=== PATIENT | male | born 1950 | race Caucasian/White ===

== ENCOUNTER → 2021-09-19 11:53 | Outpatient (BNVA) | payer MEDICARE, OTHER, SELFPAY | PROVIDERS: PCP Nurse Practitioner Family; Visit Provider Nurse Practitioner Family | DX: L03.90 Cellulitis, unspecified (principal); B35.1 Tinea unguium; I10 Essential (primary) hypertension | CPT/HCPCS: 80053 ==

== ENCOUNTER → 2021-09-30 00:01 | Outpatient (BNVA) | payer MEDICARE, OTHER, SELFPAY | PROVIDERS: PCP Nurse Practitioner Family; Visit Provider Nurse Practitioner Family | DX: R73.09 Other abnormal glucose (principal); L03.90 Cellulitis, unspecified | CPT/HCPCS: 83036 ==

== ENCOUNTER → 2021-10-27 08:56 | Outpatient (BNVA) | payer MEDICARE, OTHER, SELFPAY | PROVIDERS: PCP Nurse Practitioner Family; Referring Provider Nurse Practitioner Family; Visit Provider Podiatrist Foot & Ankle Surgery | DX: L60.8 Other nail disorders (principal); E11.21 Type 2 diabetes mellitus with diabetic nephropathy; L60.3 Nail dystrophy; M20.41 Other hammer toe(s) (acquired), right foot; M20.42 Other hammer toe(s) (acquired), left foot; M21.41 Flat foot [pes planus] (acquired), right foot; M21.42 Flat foot [pes planus] (acquired), left foot | CPT/HCPCS: 11721; 99203; 99204 ==

== ENCOUNTER → 2022-08-28 11:20 | Outpatient (BNVA) | payer MEDICARE, OTHER, SELFPAY | PROVIDERS: PCP Nurse Practitioner Family; Visit Provider Nurse Practitioner Family | DX: I10 Essential (primary) hypertension (principal); R73.09 Other abnormal glucose; E11.9 Type 2 diabetes mellitus without complications; B35.1 Tinea unguium | CPT/HCPCS: 80053; 80061; 82962; 83036; 85025 ==

== ENCOUNTER 2024-01-04 11:39 | Outpatient (CLI) | payer MEDICARE, OTHER, SELFPAY ==
--- NOTE | 2024-01-04 11:47 | ECG_ITS ---
[facility] Date: 2024-[facility]-04 Pat Name: FARRAH DOLL Department: Room: Gender: Male Manager Unix: : 1950 Requested By: Erlin Abraham Order Number: [id number] Lauryn MD: Lindsay Hernández M.D. Interpretive Statements Lung unchanged pre/post procedure; Intraprocedure shortess of breath; Symptoms resoled by discharge PROCEDURE: At the baseline, the patient's blood pressure was 180/96 with a heart rate of 106. The baseline electrocardiogram showed normal sinus rhythm with normal ST-Ts. Diffuse nonspecific T wave changes. Poor R wave progression.. The patient exercised for 2 minutes on a standard Adrian protocol. Patient attained a maximum heart rate of 150 beats per minute(101% of the maximum predicted heart rate) with a blood pressure at the peak exercise of 202/120 mm Hg. The EKG at the peak exercise revealed nonspecific T wave changes. Patient did not have any chest pain or any significant cardiac arrhythmias with the exercise During the recovery phase, there were no new changes. Blood pressure at the end of the recovery phase was 176/86 mm Hg with a heart rate of 105 per minute. CONCLUSION: 1. Normal EKG response to treadmill exercise 2. No exercise-induced chest pain or cardiac arrhythmia 3. Severely impaired exercise tolerance, attained a maximum of 4.6 METs Electronically Signed On 01-09-2024 22:39:57 CDT by Lindsay Hernández M.D. [email or web address]
[2024-01-04 12:30] VITALS: BP 177/80; PULSE 102
== END 2024-01-04 11:40 | disposition home or self-care (01) ==
PROVIDERS: PCP Nurse Practitioner Family; Visit Provider Nurse Practitioner Family
DX: R06.02 Shortness of breath (principal); E11.9 Type 2 diabetes mellitus without complications
CPT/HCPCS: 93017

== ENCOUNTER → 2024-01-31 10:35 | Outpatient (BNVA) | payer OTHER, MEDICARE, SELFPAY | PROVIDERS: PCP Nurse Practitioner Family; Visit Provider Nurse Practitioner Family | DX: I10 Essential (primary) hypertension (principal); R06.02 Shortness of breath; J98.11 Atelectasis; J90 Pleural effusion, not elsewhere classified | CPT/HCPCS: 71046 ==

== ENCOUNTER → 2024-05-11 14:06 | Outpatient (BNVA) | payer MEDICARE, OTHER, SELFPAY | PROVIDERS: PCP Nurse Practitioner Family; Visit Provider Internal Medicine | DX: I11.0 Hypertensive heart disease with heart failure (principal); I50.9 Heart failure, unspecified; E11.9 Type 2 diabetes mellitus without complications | CPT/HCPCS: 99204 ==

== ENCOUNTER → 2024-05-11 14:46 | Outpatient (BNVA) | payer OTHER, SELFPAY | PROVIDERS: PCP Nurse Practitioner Family; Visit Provider Internal Medicine | DX: R07.9 Chest pain, unspecified (principal); I50.9 Heart failure, unspecified; I10 Essential (primary) hypertension; R06.02 Shortness of breath; E11.9 Type 2 diabetes mellitus without complications | CPT/HCPCS: 93005 ==

== ENCOUNTER 2024-05-22 09:06 | Outpatient (CLI) | payer MEDICARE, OTHER, SELFPAY ==
[2024-05-22 09:34] LABS: Basophils # 0.1 10^3/uL (0.0-0.1); Basophils % 0.8 %; Eosinophils # 0.5 10^3/uL (0.0-0.8); Eosinophils % 6.3 %; Hematocrit 45.7 % (37-53); Lymphocytes # 1.8 10^3/uL (0.8-4.8); Lymphocytes % 23.9 %; Mean Corpuscular HGB Conc 31.9 g/dL (30-55); Mean Corpuscular Hemoglobin 27.6 pg (27-33); Mean Corpuscular Volume 86.4 fl (82-101); Mean Platelet Volume 9.5 fL (7.4-10.4); Monocytes # 0.7 10^3/uL (0.2-0.9); Monocytes % 9.6 %; Nucleated Red Blood Cells % 0 %; Platelet Count 221 10^3/cmm (157-399); Red Blood Count 5.29 10^6/uL (3.85-5.65); Red Cell Distribution Width 15.6 % (12.1-15.1); White Blood Count 7.62 10^3/uL (3.29-11.43)
[2024-05-22 09:50] LABS: INR 1.01 (0.83-1.21)
[2024-05-22 09:53] LABS: Anion Gap 14.4 (5-19); Blood Urea Nitrogen 12 mg/dL (8-23); Calcium 9.2 mg/dL (8.5-10.5); Carbon Dioxide 28 mmol/L (22-29); Chloride 100 mmol/L (98-107); Glucose 184 mg/dL (65-115); Osmolality Calculated 291 mOsm/kg (285-295); Potassium 4.4 mmol/L (3.5-5.1); Sodium 138 mmol/L (136-145)
== END 2024-05-22 09:07 | disposition home or self-care (01) ==
LOC: LAB 09:09
PROVIDERS: PCP Nurse Practitioner Family; Visit Provider Internal Medicine
DX: I50.9 Heart failure, unspecified (principal); I10 Essential (primary) hypertension
CPT/HCPCS: 36415; 80048; 85025; 85610

== ENCOUNTER 2024-05-25 05:47 | Outpatient (CLI) | payer MEDICARE, OTHER, SELFPAY ==
[2024-05-25] VITALS (31 sets, daily range): BP systolic 133–178; BP diastolic 80–118; PULSE 88–107; RESP 16–25; TEMP 36.4; O2SAT 90–97; BMI 38.7
[2024-05-25] MEDS: diphenhydrAMINE 50 mg Capsule PO (07:02)
--- NOTE | 2024-05-25 07:30 | XACV_ITS ---
Ht: 173 cm Wt: 116 kg BSA: 2.41 m2 Gender: Male : 1950 Any Known Allergies: No known allergies Exam Priority: Routine Procedure(s): Procedure Description: Diagnostic procedure Procedure Description: Right Heart Catheterization Procedure Description: Left ventriculography Procedure Description: O2 saturation Procedure Description: Coronary Angiography Diagnostic Cath Status: Elective Diagnostic Findings * INDICATION: LV dysfunction. * Severe multivessel coronary artery disease. * Coronary angiography shows co-dominance. * Left main artery has a severe, calcified distal vessel 80% stenosis. Proximal to mid LAD has severe, multiple tandem 70-80% lesions that are calcified. Apical vessel has moderate stenosis. Left circumflex artery gives off 2 OM branches. Both OM branches have significant 80% ostial disease. RCA has severe 90% proximal and 90% mid lesion stenosis. In distal vessel, it is totally occluded. Conclusions 1. Severe multivessel coronary artery disease. 2. Severely elevated right and left-sided cardiac pressures. Severe pulmonary hypertension. Recommendations * Recommended CABG as patient has severe multi vessel CAD with LV dysfunction. However patient does not want to have any surgical procedure. Wants to proceed with high risk PCI. We will see patient back in office after further diuresis and have detailed discussion. * Will uptitrate diuretic therapy. Interventional RX Recommendation: CABG Diagnostic RX Recommendation: CABG Anticoagulation: Heparin Pressures Phase:Rest AO : 142 / 104 ( 123 ) @ 11:01:00 AM 148 / 88 ( 115 ) @ 11:07:00 AM 149 / 90 ( 117 ) @ 11:07:00 AM LV : 155 / 0 / 34 @ 11:07:00 AM 153 / 0 / 33 @ 11:07:00 AM RV : 85 / 7 / 17 @ 10:51:00 AM PA : 92 / 37 ( 58 ) @ 10:49:00 AM RA : a wave = 21 v wave = 20 mean = 17 @ 10:51:00 AM PCW : a wave = 46 v wave = 41 mean = 38 @ 10:49:00 AM O2 Content Phase:Rest PA : O2 Content O2: 60.6 @ 11:07:00 AM Saturations Phase:Rest AO : 92 @ 11:01:00 AM PA : 61 @ 11:07:00 AM Cardiac Output Phase:Rest Ashleigh : 5 @ 10:43:56 AM Ashleigh Cardiac Index: 2 @ 10:43:56 AM Flow Phase:Rest Qp : 5 @ 10:43:56 AM Qs : 5 @ 10:43:56 AM Valves Phase:DefaultPhase AV : 6.0 @ 10:43:56 AM AV Mean Gradient: 13.0 @ 10:43:56 AM AV Flow: 253 @ 10:43:56 AM AV Area: 1.6 @ 10:43:56 AM AV Area Index: 0.70 @ 10:43:56 AM Clinical Evaluation EBL: 5mL-10mL Procedural Details Pre-Procedure Time Out. Identified patient by full name and date of as verbalized by the patient/guarantor. Does the consent match the physician's order: Yes. Accurate & Complete Informed Consent: Yes. Inpatient/Outpatient History & Physical on Chart: Yes. If H&P is completed, is and addenduem needed: Yes; If yes, is the addendum complete: N/A. Visualize and Verify Site with Patient/Guarantor: N/A. Relevant Radiology Images available: Yes. Pre-op teaching completed and patient verbalized understanding. The risks, benefits, and alternatives of sedation and/or procedure were discussed by physician. The patient agrees to continue. Procedure started. [facility] Clinical Fraility Score: 3: Managing Well. Operational Communication Chief Indications: LV Dysfunction. Chest Pain Symptom Assessment: Asymptomatic. Cardiovascular Instability: No. Correct patient, site and procedure confirmed by cath team. PERRLA. Strong, equal hand eyelet operator bilaterally. Lungs clear x 5 lobes. IV Site on Arrival: 20 gauge in the right anticubital for RHC. IV Site on Arrival: 20 gauge in the left anticubital. IV Fluids: D5/.45% NaCl at KVO. 0 mL infused prior to cathode ray tube assembler. Pre Procedural Pulses: bilateral dorsalis pedis was Doppled. Pre Procedural Pulses: bilateral posterior tibial was Doppled. Pre Procedural Pulses: bilateral radial was 3+. Patient on room air for RHC. right groin was prepped with chloroprep then draped in the usual sterile fashion. right radial was prepped with chloroprep then draped in the usual sterile fashion. Physician notified. Baseline sample Acquired. HR: 108 BPM. Patient's family unavailable. Equipment: 6F - Radial. Cardiac Cath Pack. ACIST Manifold Kit Model BT 2000. Heparinized Saline (2 units/mL), 1000 mL bag. Physician arrived. Physician scrubbed in. Immediate Pre-Procedure Time Out. Correct Patient: Yes; Correct Procedure: Yes; Correct Site: Yes; Correct Patient Position: Yes; Correct Supplies: Yes; Dried Flammable Prep: Yes; Blood Products Available: No. Lidocaine 1% infiltrated to the right brachial. Micropuncture wire in through the existing 20g PIV in the right brachial vein. Flint-Haylie catheter inserted. Daniel guidewire in through the swan. Daniel guidewire out. Flint-Haylie out. Lidocaine 1% infiltrated to the right radial. Arterial access obtained. Oximetry samples were obtained. Normal venous range: 60-85%. Normal arterial range: 95-100%. Pressure measurements obtained. ABG drawn and respiratory therapy called to run. Oxygen started at 2liters/min via nasal canula. A 5 swedish TIG catheter in over in over the exchange J wire. Multiple views taken of left coronary artery. Catheter redirected to the RCA. Multiple views taken of right coronary artery. Catheter redirected to the LV. EDP Sample taken: LV 155/0,34; HR: 97 BPM; SpO2: 94%. Pullback taken: LV 153/-1,33; AO 148/88(115); Mean: 13mmHg, Peak to Peak: 6mmHg, SEP: 19sec/min; HR: 93 BPM; SpO2: 97%. Catheter removed over the exchange J wire. Dr. Anderson scrubbed out. A Manual Compression was successful obtaining hemostatsis at the Right Brachial Vein insertion site. A TR Band was successful obtaining hemostatsis at the Right Radial artery insertion site. Post Procedure: Pulses reassessed and unchanged. PERRLA. Strong, equal hand eyelet operator bilaterally. No VTE prophylaxis required. Medication's Wasted: Lidocaine 1% = 18 mL. Medication's Wasted: Nitro = 49.8 mg. Medication's Wasted: Heparin = 1000 units. Medication's Wasted: Other = Fentanyl 50 mcg. Total IV fluids: 50 mL. Post-op diagnosis: Severe multivessel CAD--CABG referral/Severly evevated right and left sided heart failure. Complications: 50. Estimated blood loss: 5mL-10mL. Responsiveness - Normal response to verbal stimuli; alert and oriented, PERRLA. Airway - Unaffected, no intervention required; spontaneous ventilation. Circulation: W/N/L, pulses unchanged. Nausea/Vomiting: No. Procedure completed. Patient transferred by wheelchair to CPRU. RT called again to run sats. Nita stated that she had forget and will be on her way. RT, Nita, here to potato picker sats. Vital chart was stopped. Access Site Site: Right Brachial Vein Sheath Size: 6 Fr Hemostasis Method: Manual Compression Hemostasis Success: Successful Site: Right Radial artery Sheath Size: 6 Fr Hemostasis Method: TR Band Hemostasis Success: Successful Procedure Medications Start: 9:33 AM Stop: 9:33 AM Medication: Versed Amount: 1 mg Route: I.V. Start: 9:33 AM Stop: 9:33 AM Medication: Fentanyl Amount: 50 mcg Route: I.V. Start: 9:56 AM Stop: 9:56 AM Medication: Nitrogylcerin Amount: 200 mcg Route: I.A. Start: 9:58 AM Stop: 9:58 AM Medication: Versed Amount: 1 mg Route: I.V. I, the attending physician, have reviewed and verified all procedure medications. Yes, all medications given per verbal order History/Risk Factors Hypertension: Yes Dyslipidemia: No Peripheral Arterial Disease (PAD): No Myocardial Infarction (ME): No Obesity: No Renal Disease: No Tobacco Use: Never Prior Interventions PCI: No CABG: No Valve Surgery: No Report Signatures Finalized by Christiano Anderson MD on 06/04/2024 09:47 PM
--- NOTE | 2024-05-25 08:22 | P.HPUD_ITS ---
Surgery/Procedure H&P Update DATE OF PROCEDURE: May 25, 2024 DATE H&P PERFORMED: 05/11/24 H&P UPDATE INFORMATION: I have reviewed H&P completed within last 30 days, I have examined patient prior to procedure and No changes to prior documentation PREOP DIAGNOSIS: LV dysfunction PRIMARY INDICATION FOR PROCEDURE: LV dysfunction PLANNED PROCEDURE: Operation Date: 05/25/24 07:00 Proposed Procedures p Cardiac Catheterization - RLHC w/w/o LV/co/gr(Bilateral) - Christiano Anderson M.D Possible percutaneous coronary intervention PATIENT REASSESSED PRIOR TO SEDATION, WITH NO CHANGE NOTED: Yes PHYSICAL EXAM: alert, oriented x 3, clear to auscultation bilaterally and r egular rate & rhythm AIRWAY EVAL/ANESTHESIA PLAN: ASA III, Local Anesthesia, Risks, benefits & alternatives of sedation and/or procedure discussed and Patient agrees to continue as planned ADDITIONAL INFORMATION: Moderate sedation
--- NOTE | 2024-05-25 10:24 | PM.PROC ---
Procedure Note: Date of procedure: 05/25/24 Pre-procedure diagnosis: LV dysfunction Post-procedure diagnosis: other (Severe multivessel coronary artery disease) Procedure: Left main artery has a severe, calcified distal vessel 80% stenosis. Proximal to mid LAD has severe, multiple tandem lesions that are calcified. Apical vessel has another stenosis. Left circumflex artery gives off 2 OM branches. Both OM branches have significant ostial disease. RCA has severe proximal and mid lesion stenosis. In distal vessel, it is totally occluded. Severely elevated right and left-sided cardiac pressures. Severe pulmonary hypertension I have recommended patient to see CT surgery for heart team approach. Patient refuses to have CABG. Patient needs further diuresis. Will then plan on seeing in office and have detailed discussion again. Performing Provider: Christiano Anderson Estimated blood loss (mL): 10 Complications: None Condition: stable Disposition: same day Coding Level of Care Code Acute Code for [facility]
[2024-05-25 10:31] LABS: Arterial Blood Gas Hematocrit 44.4 % (42-52); Blood Gas Operator Identificat glc; Blood Gas Sample Site Not specified; Blood Gas Sample Type Not specified; Carboxyhemoglobin 1.5 %THgb (0.4-20.1); HGB O2 Sat 59.6 % (95-100); Methemoglobin 0.1 % (0.4-1.5); Total Hemoglobin 14.5 g/dL (14-18)
[2024-05-25 10:33] LABS: Arterial Blood Gas Hematocrit 39.7 % (42-52); Blood Gas Sample Site Not specified; Blood Gas Sample Type Not specified; Carboxyhemoglobin 1.6 %THgb (0.4-20.1); HGB O2 Sat 90.1 % (95-100)
[2024-05-25 10:39] LABS: Blood Gas Operator Identificat GLC
--- NOTE | 2024-05-25 12:03 | PC.NURSE ---
Transferred to bay [facility] for further care
--- NOTE | 2024-05-25 12:42 | SUR.PHASEII ---
1205-received patient from [facility] [employer] via wheelchair, patient ambulated to [facility]. Report received from RN, all questions answered.
--- NOTE | 2024-05-25 12:52 | SUR.PHASEII ---
1215-2ml air removed from TR band, no bleeding or hematoma noted
--- NOTE | 2024-05-25 12:53 | SUR.PHASEII ---
1230-2ml air removed from TR band, no bleeding or hematoma noted
--- NOTE | 2024-05-25 12:58 | SUR.PHASEII ---
1245-2ml air removed from TR band, no signs of bleeding, no hematoma
--- NOTE | 2024-05-25 13:11 | SUR.PHASEII ---
1300-2ml removed from TR band, no signs of bleeding, no hematoma noted.
--- NOTE | 2024-05-25 13:18 | SUR.PHASEII ---
1315-2ml air removed from TR band, no bleeding noted, no hematoma
--- NOTE | 2024-05-25 13:32 | SUR.PHASEII ---
1330-2 ml air removed from TR band, no bleeding, no hematoma
--- NOTE | 2024-05-25 13:50 | SUR.PHASEII ---
1345-TR band removed, no signs of bleeding, no signs of hematoma.
--- NOTE | 2024-05-25 14:00 | SUR.PHASEII ---
1400-site clean dry and intact, bandaids in place, no signs of hematoma
--- NOTE | 2024-05-25 14:19 | SUR.PHASEII ---
1415-site is dry and intact, no bleeding or hematoma noted
--- NOTE | 2024-05-25 15:05 | SUR.PHASEII ---
1505-discharge instructions have been discussed with patient, all questions answered. Right wrist dressing is clean dry and intact. patient is dressed, waiting on ride to arrive.
--- NOTE | 2024-05-25 15:57 | SUR.PHASEII ---
Patient is waiting at bedside for his ride to pick him up, no issues, site looks clean dry and intact, has been ambulating to restroom.
--- NOTE | 2024-05-25 16:18 | SUR.PHASEII ---
RN walked Patient to the waiting room, he stated his ride should be here in 15 min.
== END 2024-05-25 16:18 | disposition home or self-care (01) ==
PROVIDERS: PCP Nurse Practitioner Family; Visit Provider Internal Medicine
DX: I25.10 Atherosclerotic heart disease of native coronary artery without angina pectoris (principal); I25.84 Coronary atherosclerosis due to calcified coronary lesion; I25.85 Chronic coronary microvascular dysfunction; E11.9 Type 2 diabetes mellitus without complications; I11.0 Hypertensive heart disease with heart failure; I50.9 Heart failure, unspecified; I27.20 Pulmonary hypertension, unspecified
CPT/HCPCS: 36415; 82810; 93460; 96365; 96374; 96375; 99152; C1751; C1769; C1887; C1894; J1644; J2250; J3010; J3490; J7030; J9999; Q0163; Q9967

== ENCOUNTER → 2024-06-02 09:03 | Outpatient (BNVA) | payer MEDICARE, OTHER, SELFPAY | PROVIDERS: PCP Nurse Practitioner Family; Visit Provider Internal Medicine | DX: I25.10 Atherosclerotic heart disease of native coronary artery without angina pectoris (principal); I11.0 Hypertensive heart disease with heart failure; I50.9 Heart failure, unspecified | CPT/HCPCS: 99214 ==

== ENCOUNTER 2024-06-07 08:45 | Outpatient (CLI) | payer MEDICARE, OTHER, SELFPAY ==
--- NOTE | 2024-06-07 09:15 | USCV_ITS ---
FARRAH DOLL Age: 74 Gender: M : 1950 Exam Date: 06/07/2024 09:04 Ordering Phys: Christiano Anderson M.D ([email or web address]) Technologist: MAHI [place] [facility] [place]: PAD Risk Factors: Previous Vascular Surgery: RIGHT LEFT BP: 160.0 / 99.00 BP: 177.0/ 121.00 0 0 Waveform Velocity (cm/s) Velocity (cm/s) Waveform Triphasic 82.6 Iliac Prox 27.4 Biphasic Triphasic 74.1 Iliac Mid 25.5 Biphasic Triphasic 52.6 Iliac Distal 21.7 Biphasic Triphasic 58.0 MARKET DEVELOPMENT TRAINER 25.0 Biphasic Triphasic 61.0 SFA Prox 27.0 Biphasic Triphasic 61.0 SFA Mid 21.0 Biphasic Triphasic 47.0 SFA Dist 24.0 Biphasic Triphasic 58.0 POP 25.0 Monophasic Triphasic 38.0 DESK PEN SET ASSEMBLER 12.0 Monophasic Triphasic 43.0 DPA 17.0 Monophasic FINDINGS Normal artery Doppler waveforms and velocities on the right side. Low velocity Doppler waveforms in the left side with abnormal Doppler waveforms No ABIs were obtained CONCLUSIONS 1. Normal Doppler waveforms and velocities on the right side, suggesting no significant arterial obstruction. 2. Abnormal arterial Doppler waveforms and velocities on the left side suggesting hemodynamically significant stenosis No ABIs are obtained Consider CTA or angiogram to better evaluate the arteries Dr Lindsay Hernández MD [facility] (Electronically Signed) Final Date: 13 June 2024 17:10 S
== END 2024-06-07 08:46 | disposition home or self-care (01) ==
PROVIDERS: PCP Nurse Practitioner Family; Visit Provider Internal Medicine
DX: I73.9 Peripheral vascular disease, unspecified (principal); M79.604 Pain in right leg; M79.605 Pain in left leg; R93.89 Abnormal findings on diagnostic imaging of other specified body structures
CPT/HCPCS: 93925

== ENCOUNTER 2024-06-27 07:03 | Inpatient (IN) | payer MEDICARE, OTHER, SELFPAY ==
[2024-06-27] VITALS (21 sets, daily range): BP systolic 105–181; BP diastolic 71–114; PULSE 62–105; RESP 9–26; TEMP 36.4–36.9; O2SAT 92–100; BMI 38.6
[2024-06-27] MEDS: clopidogrel 300 mg Tablet 600 MG PO (07:30)
[2024-06-27] MEDS: aspirin 325 mg Tablet PO (07:30)
[2024-06-27] MEDS: diphenhydrAMINE 50 mg Capsule PO (07:30)
[2024-06-27 07:34] LABS: Basophils # 0.1 10^3/uL (0.0-0.1); Eosinophils # 0.7 10^3/uL (0.0-0.8); Eosinophils % 9.6 %; Lymphocytes # 1.8 10^3/uL (0.8-4.8); Lymphocytes % 26.1 %; Mean Corpuscular HGB Conc 32.5 g/dL (30-55); Mean Corpuscular Hemoglobin 27.9 pg (27-33); Mean Corpuscular Volume 85.9 fl (82-101); Mean Platelet Volume 10.2 fL (7.4-10.4); Monocytes # 0.6 10^3/uL (0.2-0.9); Neutrophils # 3.65 10^3/uL (1.8-7.7); Neutrophils % 54.2 %; Nucleated Red Blood Cells % 0 %; Platelet Count 205 10^3/cmm (157-399); Red Blood Count 5.12 10^6/uL (3.85-5.65); White Blood Count 6.75 10^3/uL (3.29-11.43)
[2024-06-27 07:48] LABS: Anion Gap 15.6 (5-19); Blood Urea Nitrogen 13 mg/dL (8-23); Calcium 9.2 mg/dL (8.5-10.5); Carbon Dioxide 28 mmol/L (22-29); Chloride 102 mmol/L (98-107); Glucose 145 mg/dL (65-115); Osmolality Calculated 297 mOsm/kg (285-295); Potassium 3.6 mmol/L (3.5-5.1); Sodium 142 mmol/L (136-145)
--- NOTE | 2024-06-27 08:43 | W.PM.OPSUD ---
Surgery/Procedure H&P Update DATE OF PROCEDURE: June 27, 2024 DATE H&P PERFORMED: 06/02/24 H&P UPDATE INFORMATION: I have reviewed H&P completed within last 30 days, I have examined patient prior to procedure and Changes to prior documentation as noted here CHANGES TO PREVIOUS DOCUMENTATION: Patient had diagnostic coronary angiogram performed last month. Has severe multivessel CAD. Has severe lateral distal left main to LAD stenosis. Plan for high risk PCI with Impella support. Patient had refused surgical evaluation. Says does not want surgery. Understands risk of the procedure. PREOP DIAGNOSIS: LV dysfunction/ severe multivessel coronary artery disease PRIMARY INDICATION FOR PROCEDURE: LV dysfunction/ severe multivessel coronary artery disease PLANNED PROCEDURE: Operation Date: 06/27/24 08:30 Proposed Procedures p Percutaneous Coronary Intervention - Staged PCI(Not Applicable) - Christiano Anderson M.D Impella insertion Anesthesia team available for sedation
--- NOTE | 2024-06-27 10:40 | ANES.PREANE2 ---
Pre-Anesthetic Assessment Height/Weight: Height 1.73 m Weight 115.212 kg Temp Pulse Resp BP Pulse Ox O2 Del Method 98.4 F 92 16 181/114 95 Room Air 06/27/24 07:15 06/27/24 07:15 06/27/24 07:15 06/27/24 07:15 06/27/24 07:15 06/27/24 07:15 Preop Diagnosis: LV dysfunction/ severe multivessel coronary artery disease Operation Date: 06/27/24 08:30 Proposed Procedures p Percutaneous Coronary Intervention - Staged PCI(Not Applicable) - Christiano Anderson M.D Social Alcohol and Tobacco Exam alert, oriented x 3 and regular rate & rhythm Scattered late exp wheezes with post tussive clearing Airway Submandibular: within normal limits Cervical ROM: within normal limits Mallampati: Class II Pulmonary Chronic Obstructive Pulmonary Disease, Cough, Exertional Dyspnea and Shortness of Breath Pleaural effusion CV/HEM Coronary Artery Disease (Multivessel critical CAD), Congestive Heart Failure and Hypertension Metabolic Diabetes Mellitus Anesthetic Plan ASA status: 4 Anesthesia: MAC Medications/Allergies Home Medications ?Medication ?Instructions ?Recorded ?Confirmed ?Last Taken ?Type blood-glucose meter (Blood Glucose #1 ea 09/11/22 06/26/24 Unknown Rx Monitoring kit) blood sugar diagnostic (Blood #50 ea 09/18/22 06/26/24 Unknown Rx Glucose Test strips) amlodipine 10 mg tablet (Norvasc) 10 mg PO DAILY #90 tabs 05/11/24 06/27/24 06/26/24 08:00 Rx aspirin 81 mg tablet,delayed 81 mg PO DAILY #90 tabs 05/11/24 06/27/24 06/26/24 08:00 Rx release (Adult Aspirin Regimen) bumetanide 1 mg tablet 1 mg PO TID for fluid retention 05/25/24 06/27/24 06/26/24 20:00 Rx #90 tabs potassium chloride 10 mEq 10 meq PO BID #90 tabs 05/25/24 06/27/24 06/26/24 08:00 Rx tablet,extended release Allergies Allergy/AdvReac Type Severity Reaction Status Date / Time No Known Allergies Allergy Verified 06/27/24 07:50 Current Medications Generic Name Dose Route Start Last Admin Trade Name Freq PRN Reason Stop Dose Admin Sodium Chloride 1,000 mls @ 50 mls/hr 06/27/24 07:30 06/27/24 07:52 Sodium Chloride 0.9% IV 06/28/24 03:29 Not Given .Q20H ONE PFSH Anesthesia Medical History Hypertension Family History Mother Cancer skin Stroke Father Cancer skin Diabetes Sister Chronic kidney disease (CKD) Grandmother Diabetes maternal and paternal Denies family history of Hypertension Social History Smoking and tobacco/nicotine status: never used tobacco/nicotine Alcohol intake: current Alcohol intake frequency: 0-2 Drinks per Day Alcohol type: beer Substance/Drug Use: never Adopted: No Caregiver/support person: No Lives independently: Yes service: No Current occupational status: retired Do you think of yourself as: Straight/Heterosexual Current gender identity: Male Data Anesthesia 06/27/24 07:20 06/27/24 07:20 Short CBC 06/27/24 Range/Units 07:20 WBC 6.75 (3.29-11.43) 10^3/uL Hgb 14.30 (11.27-16.99) g/dL Hct 44.0 (37-53) % MCV 85.9 (82-101) fl Plt Count 205 (157-399) 10^3/cmm Neut % (Auto) 54.2 % Neut # (Auto) 3.65 (1.8-7.7) 10^3/uL BMP 06/27/24 07:20 Sodium 142 Potassium 3.6 Chloride 102 Carbon Dioxide 28 BUN 13 Creatinine 0.7 Glucose 145 H Calcium 9.2 Cardiac Studies: No Data to Display
--- NOTE | 2024-06-27 12:11 | P.PCN_ITS ---
Procedure Note: Date of procedure: 06/27/24 Pre-procedure diagnosis: LV dysfunction/ Severe multivessel coronary artery disease Post-procedure diagnosis: other (S/p successful revascularization with 5 stents) Procedure: Successful revascularization of left main, proximal to mid LAD and OM branch with orbital arthrectomy and 5 stents. Impella placed for LV support and removed at end of procedure. Dual antiplatelet therapy with aspirin and plavix High intensity statin therapy Transfer to ICU Performing Provider: Christiano Anderson Estimated blood loss (mL): 20 Complications: None Condition: stable Disposition: ICU Coding [facility]
--- NOTE | 2024-06-27 12:49 | PC.NURSE ---
1225 from field laboratory operator via bed by field laboratory operator staff and RICA Zayas. Patient still sedated, RASS-2, but wakes up and answers appropriately. Bilaterally femoral sites assessed, no hematoma.
[2024-06-27] MEDS: sodium chloride 0.9% 1,000 ML 75 ML IV (13:16)
[2024-06-27 14:55] LABS: Partial Thromboplastin Time 69.6 SECONDS (23.9-36.7)
[2024-06-27 15:44] LABS: Partial Thromboplastin Time 42.9 SECONDS (23.9-36.7)
--- NOTE | 2024-06-27 16:41 | PC.NURSE ---
Sheeh pulled 1620, pressure held 20 minutes, dressing applied. No hematoma noted. Patient educated on bedrest, gives verbal understanding.
[2024-06-27] MEDS: sodium chloride 0.9% 1,000 ML 50 ML IV (22:55)
[2024-06-28] VITALS (15 sets, daily range): BP systolic 109–144; BP diastolic 66–95; PULSE 84–101; RESP 16–33; TEMP 37.3–37.7; O2SAT 88–98
[2024-06-28 04:45] LABS: Basophils % 0.4 %; Eosinophils # 0.5 10^3/uL (0.0-0.8); Eosinophils % 5.1 %; Hematocrit 35.4 % (37-53); Lymphocytes # 1.3 10^3/uL (0.8-4.8); Lymphocytes % 12.7 %; Mean Corpuscular HGB Conc 32.5 g/dL (30-55); Mean Corpuscular Hemoglobin 28.5 pg (27-33); Mean Corpuscular Volume 87.6 fl (82-101); Mean Platelet Volume 10.1 fL (7.4-10.4); Monocytes # 0.9 10^3/uL (0.2-0.9); Monocytes % 8.6 %; Neutrophils # 7.51 10^3/uL (1.8-7.7); Neutrophils % 72.9 %; Nucleated Red Blood Cells % 0 %; Platelet Count 184 10^3/cmm (157-399); Red Blood Count 4.04 10^6/uL (3.85-5.65); Red Cell Distribution Width 15.1 % (12.1-15.1); White Blood Count 10.29 10^3/uL (3.29-11.43)
[2024-06-28 05:10] LABS: Anion Gap 13.3 (5-19); Blood Urea Nitrogen 8 mg/dL (8-23); Calcium 8.3 mg/dL (8.5-10.5); Carbon Dioxide 28 mmol/L (22-29); Chloride 105 mmol/L (98-107); Creatinine Clr Calc Pharmacy 105.4319; Glucose 134 mg/dL (65-115); Osmolality Calculated 294 mOsm/kg (285-295); Potassium 4.3 mmol/L (3.5-5.1); Sodium 142 mmol/L (136-145)
[2024-06-28] MEDS: aspirin 81 mg EC Tablet PO (08:02)
[2024-06-28] MEDS: amlodipine 10 mg Tablet PO (08:02)
[2024-06-28] MEDS: clopidogrel 75 mg Tablet PO (08:02)
--- NOTE | 2024-06-28 09:06 | PC.NURSE ---
Na Taveras, EMPLOYEE HEALTH NURSE to bedside. Order given to d/c delilah, delilah cath dc'd as ordered, tolerated well. Na spoke with patient regarding need for life vest, patient states that he will have to think about it and will talk to them in the office about it.
--- NOTE | 2024-06-28 12:55 | P.PN_ITS ---
Subjective 2 Subjective: Patient is doing well. Right groin has moderate bruising, but area is soft and nontender. This morning, he developed a low grade fever. He denies any chills or body aches at this time. No complaints at present. Vitals/I&O/Wt Last Vital Signs Temp 99.5 F 06/28/24 10:00 Pulse 93 06/28/24 10:00 Resp 26 H 06/28/24 10:00 BP 127/76 06/28/24 10:00 Pulse Ox 94 06/28/24 10:00 O2 Del Method Room Air 06/28/24 10:00 O2 Flow Rate 4 06/27/24 14:00 06/27/24 06/28/24 06/28/24 22:59 06:59 14:59 Intake Total 1371.667 / 1492.917 370 / 1862.917 654 / 654 Output Total 1000 / 1000 850 / 1850 300 / 300 Balance 371.667 / 492.917 -480 / 12.917 354 / 354 Weight last 48 hrs Weight 255 lb 11.779 oz Weight 273 lb 5.971 oz Weight 254 lb Physical Exam 2 Narrative: General: No apparent distress, healthy appearing, well nourished HENMT: normoceophalic Muskuloskeletal: Full ROM Respiratory: Normal respiratory effort, clear to auscultation bilaterally throughout all lung hall, no use of accessory muscles Cardio: No JVD, regular rate, regular rhythm, S1 S2 normal, no murmurs, peripheral pulses 2+ radial palpated bilaterally Extremities: Full ROM, normal, normal capillary refill, no cyanosis or edema Neuro: Alert and oriented x4, no focal motor deficits Psych: Affect normal, denies suicidal ideation, mental status grossly normal Skin: Right groin with moderate bruising but area is soft and nontender, palpable femoral pulse Urinary Catheter Management: Doe: Cath Placed During This Visit: yes Reason for Continuing Indwelling Catheter: Accurate Measurement of Urinary Output in Critically Ill Patients Urinary Catheter Date of Insertion: 06/27/24 Urinary Catheter Time of Insertion: 13:30 Data 06/28/24 04:04 06/28/24 04:04 A&P Assessment and plan (1) CHF (congestive heart failure): (2) Coronary artery disease: (3) Hypertension: (4) Fever: Plan Recommended life vest to patient, as EF is low. Patient declines at this time. He does understand the risk of life threatening arrhythmias. He looks good, but has a low grade fever. We will consult hospitalist for assistance with this. Once cleared from their standpoint, may be discharged. PDMP PDMP Reviewed: Not Reviewed Attestations 2 Medical Necessity Statement*: Patient stay not expected to cross two midnights. Coding Level of Care Code Acute Code for [facility] Fwd Diagnoses CHF (congestive heart failure) I50.9 Coronary artery disease I25.10 Hypertension I10 Fever R50.9
--- NOTE | 2024-06-28 13:46 | P.CONIM_ITS ---
Providers/Reason For Consult 2 Consulting Physician/Specialty*: Dr Silvia Xavier Reason for Consult*: low grade temperatures post PCI Attending Physician: Christiano Anderson M.D Primary Care Provider: CHANTELL Reese History of Present Illness History of Present Illness Amauri Elkins is a 74 year old male with past medical history of HTN, CHF, CAD currently being managed for CAD s/p PCI. Had Successful revascularization of left main, proximal to mid LAD and OM branch with orbital arthrectomy and 5 stents. Medicine consulted for low grade temperatures with Tmax of 99.5. Patient denies any cold, cough, sob, chest pain, nausea/vomiting, diarrhea or urinary complaints at this time. Review of Systems 2 General: Reports: 10 or more systems reviewed and unremarkable except in HPI and below Medications/Allergies Home Medications ?Medication ?Instructions ?Recorded ?Confirmed ?Last Taken ?Type blood-glucose meter (Blood Glucose #1 ea 09/11/2206/13 Unknown Rx Monitoring kit) blood sugar diagnostic (Blood #50 ea 09/18/22 06/26/24 Unknown Rx Glucose Test strips) amlodipine 10 mg tablet (Norvasc) 10 mg PO DAILY #90 t abs 05/11/24 06/27/24 06/26/24 08:00 Rx aspirin 81 mg tablet,delayed 81 mg PO DAILY #90 tabs 0 05/11/24 06/27/24 06/26/24 08:00 Rx release (Adult Aspirin Regimen) bumetanide 1 mg tablet 1 mg PO TID for fluid retent ion 05/25/24 06/27/24 06/26/24 20:00 Rx #90 tabs potassium chloride 10 mEq 10 meq PO BID #90 tabs 05/2506/27/24 06/26/24 08:00 Rx tablet,extended release clopidogrel 75 mg tablet 75 mg PO DAILY #90 tabs 06/13 09/06 Unknown Rx Allergies Allergy/AdvReac Type Severity Reaction Status Date / Time No Known Allergies Allergy Verified 06/27/24 07:50 Current Medications Generic Name Dose Route Start Last Admin Trade Name Freq PRN Reason Stop Dose Admin Amlodipine Besylate 10 mg 06/28/24 09:00 06/28/24 08:02 Amlodipine 10 Mg Tablet PO 10 mg DAILY ELFEGO Administration Aspirin 81 mg 06/27/24 09:00 06/28/24 08:02 Aspirin 81 Mg Ec Tablet PO 81 mg DAILY ELFEGO Administration Bumetanide 1 mg 06/27/24 09:00 06/27/24 12:59 Bumetanide 1 Mg Tablet PO Not Given TID ELFEGO Clopidogrel Bisulfate 75 mg 06/28/24 09:00 06/28/24 08:02 Clopidogrel 75 Mg Tablet PO 75 mg DAILY ELFEGO Administration Potassium Chloride 10 meq 06/27/24 09:00 06/27/24 12:59 Potassium Chloride Er 10 Meq Tablet PO Not Given BID ELFEGO PFSH Acute 2 PFSH: Medical History Hypertension Family History Mother Cancer skin Stroke Father Cancer skin Diabetes Sister Chronic kidney disease (CKD) Grandmother Diabetes maternal and paternal Denies family history of Hypertension Social History Smoking and tobacco/nicotine status: never used tobacco/nicotine Alcohol intake: current Alcohol intake frequency: 0-2 Drinks per Day Alcohol type: beer Substance/Drug Use: never Adopted: No Caregiver/support person: No Lives independently: Yes service: No Current occupational status: retired Do you think of yourself as: Straight/Heterosexual Current gender identity: Male Vitals/I&O/Wt Last Vital Signs Temp 99.3 F 06/28/24 12:00 Pulse 93 06/28/24 12:00 Resp 22 H 06/28/24 12:00 BP 109/66 06/28/24 12:00 Pulse Ox 98 06/28/24 12:00 O2 Del Method Room Air 06/28/24 12:00 O2 Flow Rate 4 06/27/24 14:00 06/27/24 06/28/24 06/28/24 22:59 06:59 14:59 Intake Total 1371.667 / 1492.917 370 / 1862.917 654 / 654 Output Total 1000 / 1000 850 / 1850 300 / 300 Balance 371.667 / 492.917 -480 / 12.917 354 / 354 Weight last 48 hrs Weight 116 kg Weight 124 kg Weight 115.212 kg Physical Exam 2 Narrative: He is alert awake, oriented x3 chest CTA CVS normal heart sounds, no murmurs Abdomen soft nontender nondistended normal bowel sounds Extremities no edema present bilateral lower extremity Urinary Catheter Management: Doe: Cath Placed During This Visit: yes Reason for Continuing Indwelling Catheter: Accurate Measurement of Urinary Output in Critically Ill Patients Urinary Catheter Date of Insertion: 06/27/24 Urinary Catheter Time of Insertion: 13:30 Data 06/28/24 04:04 06/28/24 04:04 A&P Assessment and plan (1) Fever: Plan Amauri Elkins is a 74 year old male with past medical history of HTN, CHF, CAD currently being managed for CAD s/p PCI, in ICU presenting with low grade temperatures. No obvious source of infection. Low grade temp likely reactive. Will hold off on antibiotics for now. Patient informed to follow up with PCP or [facility] ER if has consistent high grade temperatures or fever. No further intervention needed at this time. will sign off. PDMP PDMP Reviewed: Not Reviewed Consult Attestations 2 Medical Necessity Statement: As per primary team Time Spent in Patient Care: 30minutes Coding Level of Care Code Acute Code for Chg Fwd Diagnoses Fever R50.9 Time Spent (min) 30
--- NOTE | 2024-06-28 14:12 | P.DS_ITS ---
<Statement entered by Christiano Anderson M.D - 06/28/24 23:12> Patient was evaluated and cared for in conjunction with an advanced practice practitioner. I personally examined the patient and reviewed the chart and all pertinent data including imaging, telemetry, and laboratory results. I discussed the patient in detail with the advanced practice practitioner. Please see their note for discharge summary, results and agreed upon plan of care for the patient. GENERAL: Patient is alert and oriented HEART: Regular S1 and S2 LUNGS: Clear to auscultation bilaterally EXTREMITIES: Lower extremities with no edema 1) S/p high risk multivessel PCI with impella support and orbital arthrectomy 2) Coronary artery disease 3) LV dysfunction Patient had high risk PCI of left main/LAD and OM with 5 stents and orbital arthrectomy. Impella LV support device was placed for procedure and removed at the end. patient stayed stable post procedure. Had low grade fever today and ev aluated by medicine team. Patient discharged home in a stable condition on dual antiplatelet therapy. Patient refused lifevest placement Discharge Providers Date of Admission: 06/27/24 07:03 Date of Discharge: June 28, 2024 Attending Provider at Admission: Christiano Anderson M.D Attending Provider at Discharge: Christiano Anderson M.D Primary Care Provider: CHANTELL Reese Diagnoses at Discharge Discharge Diagnosis (1) Fever: Status: Acute (2) CHF (congestive heart failure): Status: Acute (3) Coronary artery disease: Status: Acute Reason for Visit Reason for Visit: I25.10 Brief History: This is a 74-year-old gentleman with past medical history of hypertension with significant LV dysfunction had previous cardiac cath demonstrating severe multivessel CAD. We initially recommended for CABG but patient refused and only wanted to have PCI. We had uptitrated diuretic therapy and made him euvolemic. He came in for high risk stenting procedure with impella placement. Hospital Course Hospital Course Patient underwent successful revascularization of left main, proximal to mid LAD and OM branch with orbital arthrectomy and 5 stents. Impella placed for LV support and removed at end of procedure. He did well post procedure. He did develop a small hematoma that resolve. He had developed a low grade fever post procedure. We consulted hospitalist for assistance with this. He denies chills/body aches. Labs are stable. He may have developed some post procedural inflammatory response. Hospitalist has okd him for discharge with the instruction to follow up with PCP if fever persists. Physical Exam Narrative: General: No apparent distress, healthy appearing, well nourished HENMT: normoceophalic Muskuloskeletal: Full ROM Respiratory: Normal respiratory effort, clear to auscultation bilaterally throughout all lung hall, no use of accessory muscles Cardio: No JVD, regular rate, regular rhythm, S1 S2 normal, no murmurs, peripheral pulses 2+ radial palpated bilaterally Extremities: Full ROM, normal, normal capillary refill, no cyanosis or edema Neuro: Alert and oriented x4, no focal motor deficits Psych: Affect normal, denies suicidal ideation, mental status grossly normal Skin: Right groin with moderate bruising but area is soft and nontender, palpable femoral pulse Urinary Catheter Management: Doe: Cath Placed During This Visit: yes Reason for Continuing Indwelling Catheter: Accurate Measurement of Urinary Output in Critically Ill Patients Urinary Catheter Date of Insertion: 06/27/24 Urinary Catheter Time of Insertion: 13:30 Discharge Data Studies Completed and Pending Pending at discharge Category Date Time Status HIDE HAND[employer]ER request for service Routine Exams 06/27/24 07:30 Taken Laboratory Results WBC 10.29 10^3/uL (3.29-11.43) 06/28/24 04:04 RBC 4.04 10^6/uL (3.85-5.65) 06/28/24 04:04 Hgb 11.50 g/dL (11.27-16.99) 06/28/24 04:04 Hct 35.4 % (37-53) L 06/28/24 04:04 MCV 87.6 fl (82-101) 06/28/24 04:04 MCH 28.5 pg (27-33) 06/28/24 04:04 MCHC 32.5 g/dL (30-55) 06/28/24 04:04 RDW 15.1 % (12.1-15.1) 06/28/24 04:04 Plt Count 184 10^3/cmm (157-399) 06/28/24 04:04 MPV 10.1 fL (7.4-10.4) 06/28/24 04:04 Neut % (Auto) 72.9 % 06/28/24 04:04 Lymph % (Auto) 12.7 % 06/28/24 04:04 Kidder % (Auto) 8.6 % 06/28/24 04:04 Eos % (Auto) 5.1 % 06/28/24 04:04 Baso % (Auto) 0.4 % 06/28/24 04:04 Neut # (Auto) 7.51 10^3/uL (1.8-7.7) 06/28/24 04:04 Lymph # (Auto) 1.3 10^3/uL (0.8-4.8) 06/28/24 04:04 Kidder # (Auto) 0.9 10^3/uL (0.2-0.9) 06/28/24 04:04 Eos # (Auto) 0.5 10^3/uL (0.0-0.8) 06/28/24 04:04 Baso # (Auto) 0.0 10^3/uL (0.0-0.1) 06/28/24 04:04 Nucleated RBC % (auto) 0 % 06/28/24 04:04 Nucleated RBCs # 0.0 /100WBC 06/28/24 04:04 APTT 42.9 SECONDS (23.9-36.7) H 06/27/24 15:23 Sodium 142 mmol/L (136-145) 06/28/24 04:04 Potassium 4.3 mmol/L (3.5-5.1) 06/28/24 04:04 Chloride 105 mmol/L (98-107) 06/28/24 04:04 Carbon Dioxide 28 mmol/L (22-29) 06/28/24 04:04 Anion Gap 13.3 (5-19) 06/28/24 04:04 BUN 8 mg/dL (8-23) 06/28/24 04:04 Creatinine 0.6 mg/dL (0.7-1.2) L 06/28/24 04:04 GFR Calculation Not Reportable 06/28/24 04:04 Glucose 134 mg/dL (65-115) H 06/28/24 04:04 Calculated Osmolality 294 mOsm/kg (285-295) 06/28/24 04:04 Calcium 8.3 mg/dL (8.5-10.5) L 06/28/24 04:04 Procedures Performed Successful revascularization of left main, proximal to mid LAD and OM branch with orbital arthrectomy and 5 stents. Impella placed for LV support and removed at end of procedure. Vitals Last Vital Signs Temp 99.3 F 06/28/24 12:00 Pulse 93 06/28/24 12:00 Resp 22 H 06/28/24 12:00 BP 109/66 06/28/24 12:00 Pulse Ox 98 06/28/24 12:00 O2 Del Method Room Air 06/28/24 12:00 O2 Flow Rate 4 06/27/24 14:00 Discharge Plan Discharge Patient Disposition: Home Condition: Stable Prescriptions: New clopidogrel 75 mg Tablet 75 mg PO DAILY Qty: 90 3RF Continued (DME) blood-glucose meter [Blood Glucose Monitoring] Kit See Rx Instructions .ROUTE .MEDSUPPLY Qty: 1 0RF Rx Instructions: As directed aspirin [Adult Aspirin Regimen] 81 mg tablet,delayed release (DR/EC) 81 mg PO DAILY Qty: 90 3RF amlodipine [Norvasc] 10 mg tablet 10 mg PO DAILY Qty: 90 3RF (DME) Blood Glucose Test Strip See Rx Instructions .Route Qty: 50 2RF Rx Instructions: As directed; once daily potassium chloride 10 mEq tablet extended release 10 meq PO BID Qty: 90 3RF bumetanide 1 mg tablet 1 mg PO TID Qty: 90 1RF Discharge Orders: Discharge Order (Routine); Ordered 06/28/24 Ordered By: Na Taveras Referrals: Brianna Kirk FNP [Primary Care Provider] - 07/04/24 1:40 pm Christiano Anderson M.D [Physician] - (will schedule a date and time after clinic visit with Marie Evans ) Marie Evans FNP [Nurse Practitioner] - 07/06/24 2:30 pm Discharge Diet: Cardiac Discharge Activity: Limit activity as instructed Patient Instructions: Clopidogrel (By mouth) (Plavix), Heart Failure (DC), Coronary Artery Disease (DC), Coronary Intravascular Stent Placement (DC), CHF Stoplight, Chest Pain Stoplight, Opioid Safety, Post Angiogram Home Care Instructions Activity Restrictions/Additional Instructions: Discussed with patient no heavy lifting more than a gallon of milk as well as going up or down steps for 3 days. No driving for 3 days. Monitor for and report signs or symptoms of bleeding. Monitor for and report s/s of infection such as fever 101 or greater, swelling, redness or pain to the groin. Plan of Treatment: Patient should stay on dual antiplatelet therapy including aspirin and plavix. LFTs to be checked in clinic and if ok, need to initiate high dose statin therapy. GDMT to be initiated as patient can tolerate. See patient in 7 days in the clinic for follow up. Discharge Attestations Time Spent in Discharge Care*: less than 30 min Quality Metrics Clinical Quality Measures [ No reported AMI, CVA or VTE this stay] Coding Level of Care Code Acute Code for Chg Fwd Diagnoses Fever R50.9 CHF (congestive heart failure) I50.9 Coronary artery disease I25.10
--- NOTE | 2024-06-28 14:38 | PC.NURSE ---
Discharge instructions given to patient all questions answered. Patient states that his ride will be here at approx 1530. Patient states that he does not want to wait in the ICU room. Discharged from ICU via wheelchair to [facility]. Instructed patient to remain at hospital until patients ride arrives and if he has any chest pain or shortness of breath or any other problems to go to the ER.
== END 2024-06-28 14:41 | disposition home or self-care (01) | DRG 321 ==
LOC: ICU 07:03
PROVIDERS: Nurse Practitioner Family; Admitting Provider Internal Medicine; PCP Nurse Practitioner Family; Visit Provider Internal Medicine
PROC: 027237Z Dilation of Coronary Artery, Three Arteries with Four or More Drug-eluting Intraluminal Devices, Percutaneous Approach (ICD-10-PCS; principal; 2024-06-27 08:30)
DX: I25.10 Atherosclerotic heart disease of native coronary artery without angina pectoris (principal); I50.22 Chronic systolic (congestive) heart failure; J44.9 Chronic obstructive pulmonary disease, unspecified; I11.0 Hypertensive heart disease with heart failure; E11.9 Type 2 diabetes mellitus without complications; Z79.82 Long term (current) use of aspirin
CPT/HCPCS: 33990; 36415; 51702; 80048; 85025; 85347; 85730; 92978; 93454; 96374; C1724; C1725; C1753; C1760; C1769; C1874; C1887; C1894; C9601; C9602; G0269; J1644; J2250; J2371; J2704; J3010; J7030; J9999; Q0163; Q9967

== ENCOUNTER → 2024-07-04 14:10 | Outpatient (BNVA) | payer MEDICARE, OTHER, SELFPAY | PROVIDERS: PCP Nurse Practitioner Family; Visit Provider Nurse Practitioner Family | DX: R73.09 Other abnormal glucose (principal); I25.10 Atherosclerotic heart disease of native coronary artery without angina pectoris; E11.69 Type 2 diabetes mellitus with other specified complication | CPT/HCPCS: 83036 ==

== ENCOUNTER → 2024-07-06 15:20 | Outpatient (BNVA) | payer MEDICARE, OTHER, SELFPAY | PROVIDERS: PCP Nurse Practitioner Family; Visit Provider Nurse Practitioner Family | DX: I11.0 Hypertensive heart disease with heart failure (principal); I50.23 Acute on chronic systolic (congestive) heart failure; I25.10 Atherosclerotic heart disease of native coronary artery without angina pectoris; Z79.01 Long term (current) use of anticoagulants; Z79.82 Long term (current) use of aspirin; R06.02 Shortness of breath | CPT/HCPCS: 36415; 80053; 83880; 85025; 99214 ==

== ENCOUNTER → 2024-08-03 09:23 | Outpatient (BNVA) | payer MEDICARE, SELFPAY | PROVIDERS: PCP Nurse Practitioner Family; Visit Provider Nurse Practitioner Family | DX: I11.0 Hypertensive heart disease with heart failure (principal); I50.23 Acute on chronic systolic (congestive) heart failure; I25.10 Atherosclerotic heart disease of native coronary artery without angina pectoris | CPT/HCPCS: 99213 ==